=== PATIENT | male | born 1990 | race Two or more races ===

== ENCOUNTER 2021-02-14 10:53 | Emergency (ER) | payer OTHER ==
[~2021-02-14] VITALS: Ht 180.3 cm; Wt 73.0 kg
--- NOTE | 2021-02-14 11:13 | PHYS DOC ---
General Adult EDM: Chief Complaint: CHEST PAIN HPI: HPI: Patient is a 30 year old male who presents with last couple of days he has had palpitations and now a dull ache that he rates about a 3 or 4 out of 10 to the left chest. He states is been continuous. He denies shortness of breath, nausea, vomiting, dizziness, headache, fever, cough, abdominal pain, back pain. He denies any drug use. He does not smoke. He states that he does have a history of sleep apnea. He states that his dad and his grandpa have both had heart attacks. But they were both older. There is not been anyone with sudden cardiac arrest or anybody young with a heart attack or sudden cardiac arrest. Patient states that when his are moving to [place] at this time. He states that they are literally driving and moving to [place] right now. He states he usually goes to the [place] but will be going there for any kind of follow- up because they are going to [place]. He states that he does understand that he will need to follow-up with a doctor or frickertron checker soon as possible. He does drink 4 cups of coffee a day. He has been more stressed lately. He states he has been lifting and moving boxes lately also. Movement does not make the pain any worse. Review of Systems: Review of Systems: Constitutional: Denies fever or chills. [] Eyes: Denies change in visual acuity. [] HENT: Denies nasal congestion or sore throat. [] Respiratory: Denies cough or shortness of breath. [] Cardiovascular: + chest pain, + palpitations or denies edema. [] GI: Denies abdominal pain, nausea, vomiting, bloody stools or diarrhea. [] : Denies dysuria. [] Musculoskeletal: Denies back pain or joint pain. [] Integument: Denies rash. [] Neurologic: Denies headache, focal weakness or sensory changes. [] Endocrine: Denies polyuria or polydipsia. [] Lymphatic: Denies swollen glands. [] Psychiatric: Denies depression or anxiety. [] Heart Score: C/O Chest Pain: Yes HEART Score for Chest Pain: HEART Score for Chest Pain Response (Comments) Value History Slighlty/Non-Suspicious 0 ECG Normal 0 Age < 45 0 Risk Factors 1 or 2 Risk Factors 1 Troponin < Normal Limit 0 Total 1 Risk Factors: Risk Factors: DM, Current or recent (<one month) smoker, HTN, HLP, family history of CAD, obesity. Risk Scores: Score 0 - 3: 2.5% MACE over next 6 weeks - Discharge Home Score 4 - 6: 20.3% MACE over next 6 weeks - Admit for Clinical Observation Score 7 - 10: 72.7% MACE over next 6 weeks - Early Invasive Strategies Physical Exam: PE: Constitutional: Well developed, well nourished, no acute distress, non-toxic appearance. [] HENT: Normocephalic, atraumatic, bilateral external ears normal, oropharynx moist, no oral exudates, nose normal. [] Eyes: PERRLA, EOMI, conjunctiva normal, no discharge. [] Neck: Normal range of motion, no tenderness, supple, no stridor. [] Cardiovascular:Heart rate regular rhythm, no murmur [] Lungs & Thorax: Bilateral breath sounds clear to auscultation [] Abdomen: Bowel sounds normal, soft, no tenderness, no masses, no pulsatile masses. [] Skin: Warm, dry, no erythema, no rash. [] Back: No tenderness, no CVA tenderness. [] Extremities: No tenderness, no cyanosis, no clubbing, ROM intact, no edema. [] Neurologic: Alert and oriented X 3, normal motor function, normal sensory function, no focal deficits noted. [] Psychologic: Affect normal, judgement normal, mood normal. Normal physical exam [] EKG: EK and read by Dr. Henry as a sinus rhythm and no STEMI [] Radiology/Procedures: Radiology/Procedures: [] Impression: [facility] [address] [place], [place] [id number] IMAGING REPORT Signed PATIENT: JESUS CHERRY ACCOUNT: [id number] : 1990 LOCATION: ER AGE: 30 SEX: M EXAM STATUS: PRE ER ORD. PHYSICIAN: CRUZ TRIPP APRN REASON: chest pain PROCEDURE: PORTABLE CHEST 1V Single view chest dated 02/14/2021 11:23 AM: COMPARISON: None Clinical Indication: Chest pain. Findings: Single upright portable exam of the chest was performed. Heart size and mediastinal contours are within normal limits. Lungs are clear. No consolidation or pleural effusion. No pneumothorax. IMPRESSION: No acute radiographic abnormality. Electronically signed by: Abner Blount MD (02/14/2021 11:24 AM) [id number] DICTATED and SIGNED BY: ABNER BLOUNT MD DATE: 02/14/21 [id number] [facility] [address] [place] [address] IMAGING REPORT Signed PATIENT: JESUS CHERRY ACCOUNT: [id number] : 1990 LOCATION: ER AGE: 30 SEX: M EXAM STATUS: REG ER ORD. PHYSICIAN: CRUZ TRIPP APRN REASON: palpitations, chest pain PROCEDURE: CT ANGIOGRAPHY CHEST Study: CT CHEST WITH CONTRAST - PULMONARY ANGIOGRAM History: Palpitations, chest pain Comparison: Chest radiograph 02/14/2021 Technique: Helical CT of the chest performed after the administration of 90 mL Omnipaque 350 intravenous contrast and timed for angiographic evaluation of the pulmonary arteries per PE protocol. Coronal and sagittal 3D MIP reformations were obtained. One or more of the following individualized dose reduction techniques were utilized for this examination: 1. Automated exposure control 2. Adjustment of the mA and/or kV according to patient size 3. Use of iterative reconstruction technique. Findings: Pulmonary Arteries: Contrast bolus is adequate. There is no acute pulmonary embolism. Heart/Systemic Vasculature: Heart is normal in size. No pericardial effusion. Thoracic aorta is normal in caliber. Mediastinum: No mediastinal or hilar lymphadenopathy. Lungs: The lungs are clear. No pleural effusion. Central airways are clear. Neck/Axilla/Body Wall: No axillary lymphadenopathy. Thyroid gland is normal. Upper Abdomen: Unremarkable. Bones: No acute osseous abnormality. IMPRESSION: No acute pulmonary embolism. Electronically signed by: Remberto Martin MD (02/14/2021 12:13 PM) [id number] DICTATED and SIGNED BY: REMBERTO MARTIN MD DATE: 02/14/21 [id number] Course & Med Decision Making: Course & Med Decision Making Pertinent Labs and Imaging studies reviewed. (See chart for details) See HPI. Alert and oriented x4. Ambulatory with a steady gait. Speaks in full clear sentences. No extremity edema. Skin pink warm and dry. Vital signs are within normal limits. Lungs are clear to auscultation all lobes. He is a febrile. The pain is not reproducible with palpation. Blood work is unremarkable. CT angio shows no acute findings. Chest x-ray shows no acute findings. Patient is given a liter of fluid. He is given 324 of aspirin. Patient to follow-up in [place] with the physician of his choosing. He states his understanding of this. [] Dragon Disclaimer: Dragon Disclaimer: This electronic medical record was generated, in whole or in part, using a voice recognition dictation system. Departure Departure Impression: Primary Impression: Chest pain Qualified Codes: R07.9 - Chest pain, unspecified Additional Impression: Palpitations Disposition: HOME / SELF CARE / HOMELESS Condition: STABLE Referrals: JACQUE SUTTON MD Patient Instructions: Chest Pain (Nonspecific), Palpitations Additional Instructions: Follow-up with a primary care provider. You should also follow-up with a c ardiologist. Try to follow-up as soon as possible. Drink plenty of water. I would try to stay away from caffeine or released limit your caffeine. If anything worsens go to the nearest emergency room. CRUZ TRIPP APRN Feb 14, 2021 11:13
[2021-02-14 11:23] LABS: BASO # 0.1 x10^3/uL (0.0-0.2); BASO % 1 % (0-3); EOS # 0.1 x10^3/uL (0.0-0.7); EOS % 2 % (0-3); HEMATOCRIT 46.3 % (39.0-53.0); LYMPH % 36 % (24-48); MEAN CORPUSCULAR HEMOGLOBIN 33 pg (25-35); MEAN CORPUSCULAR HGB CONC 35 g/dL (31-37); MEAN CORPUSCULAR VOLUME 94 fL (79-100); MONO # 0.5 x10^3/uL (0.0-1.1); MONO % 8 % (0-9); NEUT % 53 % (31-73); PLATELET COUNT 217 x10^3/uL (140-400); RED BLOOD COUNT 4.93 x10^6/uL (4.30-5.70); RED CELL DISTRIBUTION WIDTH 12.7 % (11.5-14.5); WHITE BLOOD COUNT 5.6 x10^3/uL (4.0-11.0)
--- NOTE | 2021-02-14 11:26 | RAD ---
Single view chest dated 02/14/2021 11:23 AM: COMPARISON: None Clinical Indication: Chest pain. Findings: Single upright portable exam of the chest was performed. Heart size and mediastinal contours are with in normal limits. Lungs are clear. No consolidation or pleural effusion. No pneumothorax. IMPRESSION: No acute radiographic abnormality. Electronically signed by: Abner Blount MD (02/14/2021 11:24 AM) [id number]
[2021-02-14] MEDS ORDERED: ASPIRIN CHEWABLE 81 MG TABLET. PO ONE (11:30)
[2021-02-14 11:31] LABS: CALCIUM 9.4 mg/dL (8.5-10.1); CREATININE 1.1 mg/dL (0.7-1.3); GFR 77.6; POTASSIUM 4.1 mmol/L (3.5-5.1)
[2021-02-14 11:37] LABS: ALBUMIN 4.8 g/dL (3.4-5.0); ALBUMIN/GLOBULIN RATIO 1.7 (1.0-1.7); TOTAL BILIRUBIN 1.2 mg/dL (0.2-1.0); TOTAL PROTEIN 7.6 g/dL (6.4-8.2)
[2021-02-14] MEDS ORDERED: CONTRAST GIVEN. MC PRN (12:00)
[2021-02-14] MEDS ORDERED: IV NORMAL SALINE 1000ML BAG 1,000 ML IV ONE (12:00)
[2021-02-14] MEDS ORDERED: IOHEXOL 350 MG/ML 100 ML VIAL. IV ONE (12:00)
--- NOTE | 2021-02-14 12:15 | RAD ---
Study: CT CHEST WITH CONTRAST - PULMONARY ANGIOGRAM History: Palpitations, chest pain Comparison: Chest radiograph 02/14/2021 Technique: Helical CT of the chest performed after the administration of 90 mL Omnipaque 350 intrave nous contrast and timed for angiographic evaluation of the pulmonary arteries per PE protocol. Rowland l and sagittal 3D MIP reformations were obtained. One or more of the following individualized dose reduction techniques were utilized for this examinat ion: 1. Automated exposure control 2. Adjustment of the mA and/or kV according to patient size 3. Use of iterative reconstruction technique. Findings: Pulmonary Arteries: Contrast bolus is adequate. There is no acute pulmonary embolism. Heart/Systemic Vasculature: Heart is normal in size. No pericardial effusion. Thoracic aorta is carlos l in caliber. Mediastinum: No mediastinal or hilar lymphadenopathy. Lungs: The lungs are clear. No pleural effusion. Central airways are clear. Neck/Axilla/Body Wall: No axillary lymphadenopathy. Thyroid gland is normal. Upper Abdomen: Unremarkable. Bones: No acute osseous abnormality. IMPRESSION: No acute pulmonary embolism. Electronically signed by: Meagan Martin MD (02/14/2021 12:13 PM) [id number]
[2021-02-14 12:35] VITALS: BP 108/64
--- NOTE | 2021-02-14 17:54 | EKG ---
[facility] [address] [place] [address] Test Date: 2021-02-14 Test Time: 11:01:12 Pat Name: JESUS CHERRY Department: Room: Gender: M Noc Analyst: : 1990 Requested By: CRUZ TRIPP Order Number: [id number] Reading MD: Measurements Intervals [place] Rate: 62 P: 68 FL: 176 QRS: 71 QRSD: 96 T: 49 QT: 358 QTc: 365 Interpretive Statements SINUS RHYTHM LEFT ATRIAL ABNORMALITY QRS(T) CONTOUR ABNORMALITY CONSIDER ANTEROLATERAL MYOCARDIAL DAMAGE ABNORMAL ECG RI6.01 No previous ECG available for comparison
== END 2021-02-14 12:55 | disposition home or self-care (01) ==
LOC: ER 10:53
DX: R07.89 Other chest pain (principal); R00.2 Palpitations
CPT/HCPCS: 36415; 71045; 71275; 80053; 83690; 83880; 84484; 85025; 85379; 93005; 96360; 99285; J7030; Q9967